=== PATIENT | female | born 1960 ===

== ENCOUNTER 2022-03-04 21:35 | Emergency (ER) | payer BC ==
[~2022-03-04] VITALS: Ht 149.9 cm; Wt 84.8 kg
[2022-03-04] MEDS ORDERED: COZAAR25 MG (22:01)
== END 2022-03-05 01:11 | disposition home or self-care (01) ==
LOC: ER 21:35
DX: S90.31XA Contusion of right foot, initial encounter (principal); W18.39XA Other fall on same level, initial encounter; Y93.89 Activity, other specified; Y92.89 Other specified places as the place of occurrence of the external cause; Y99.9 Unspecified external cause status; I10 Essential (primary) hypertension